=== PATIENT | male | born 1970 | race Caucasian/White ===

== ENCOUNTER 2018-07-19 06:21 | Emergency (ER) | payer OTHER ==
[~2018-07-19] VITALS: Ht 177.8 cm; Wt 115.4 kg
[2018-07-19 07:17] VITALS: BP 115/61
== END 2018-07-19 07:17 | disposition home or self-care (01) ==
LOC: ED 06:21
DX: G89.18 Other acute postprocedural pain (principal); M25.512 Pain in left shoulder; I10 Essential (primary) hypertension; E78.00 Pure hypercholesterolemia, unspecified